=== PATIENT | male | born 1990 | race Caucasian/White ===

== ENCOUNTER 2023-07-16 14:50 | Emergency (ER) | payer BC ==
[~2023-07-16] VITALS: Ht 177.8 cm; Wt 63.5 kg
[2023-07-16] MEDS: IV NS 0.9% 1,000 ML BAG IV ONE (15:22)
[2023-07-16 15:57] LABS: BASOPHILS % (AUTO) 0.4 % (0.0-2.0); EOSINOPHILS % (AUTO) 0.1 % (0.0-6.0); HEMATOCRIT 42 % (39-51); LYMPHOCYTES # (AUTO) 0.8 K/uL (0.8-4.8); LYMPHOCYTES % (AUTO) 8.9 % (20.0-44.0); MEAN CORPUSCULAR HEMOGLOBIN 30 PG (26.0-33.0); MEAN CORPUSCULAR HGB CONC 33 g/dl (31.0-36.0); MEAN CORPUSCULAR VOLUME 92 fL (80-96); MONOCYTES # (AUTO) 0.4 K/uL (0.1-1.30); MONOCYTES % (AUTO) 4.3 % (2.0-12.0); NEUTROPHILS # (AUTO) 8.1 K/uL (1.8-8.9); NEUTROPHILS % (AUTO) 86.3 % (43.0-81.0); PLATELET COUNT (AUTO) 211 K/uL (150-450); RED CELL DISTRIBUTION WIDTH 13.5 % (11.5-15.0); WHITE BLOOD COUNT (AUTO) 9.4 K/uL (4.3-11.0)
[2023-07-16 16:11] LABS: CALCIUM, SERUM 8.8 mg/dL (8.5-10.1); CREATININE 1.2 mg/dL (0.6-1.3); POTASSIUM 4.5 mmol/L (3.5-5.1)
[2023-07-16 16:16] LABS: ALBUMIN 3.9 g/dL (3.4-5.0); BILIRUBIN,DIRECT 0.1 mg/dL (0.0-0.2); BILIRUBIN,TOTAL 0.2 mg/dL (0.2-1.0); TOTAL PROTEIN, SERUM 7.3 g/dL (6.4-8.2)
[2023-07-16 16:22] LABS: INR 0.98 (0.91-1.10); PARTIAL THROMBOPLASTIN TIME 25.6 SEC (24.3-34.3); PROTHROMBIN TIME 10.1 SECS (9.2-11.1)
[2023-07-16 17:35] VITALS: BP 132/64; TEMP 98.3; O2SAT 99
== END 2023-07-16 17:35 | disposition home or self-care (01) ==
LOC: ER 15:26
DX: R55 Syncope and collapse (principal); R73.9 Hyperglycemia, unspecified
CPT/HCPCS: 99285; 96360; 70450; 71045; 93005; 85025; 80048; 80076; 36415; 85730; J7030